=== PATIENT | female | born 1985 | race Caucasian/White ===

== ENCOUNTER → 2017-01-24 | Outpatient (CLI) | payer BC, OTHER ==
[~2017-01-24] MED LIST: PRENTAB26 PO; VITACAP26
[2017-01-24 18:28] LABS: URINE APPEARANCE CLEAR (CLEAR); URINE BILIRUBIN NEG (NEG); URINE COLOR YELLOW; URINE EPITHELIAL CELL AUTO >30 /lpf (0-5); URINE NITRITE NEG (NEG); URINE PH 5.5 (4.5-7.5); URINE SPECIFIC GRAVITY 1.011 (1.000-1.030); UROBILINOGEN NEG (NEG)
[2017-01-24 18:30] LABS: MANUAL MICROSCOPIC REQUIRED? NO; REVIEW REQ? NO
== END | disposition home or self-care (01) ==
LOC: C.LABSPEC 17:36
PROVIDERS: ATTEND Obstetrics & Gynecology
DX: Z34.81 Encounter for supervision of other normal pregnancy, first trimester (principal)

== ENCOUNTER → 2017-01-30 | Outpatient (CLI) | payer OTHER ==
[2017-01-30 10:13] LABS: BASO % 0.1 %; BASO ABS # 0.01 K/uL (0-0.2); COMPLETE YES; HEMATOCRIT 39.1 % (37-47); IG% 0.1 %; LYMPH % 21.7 %; LYMPH ABS # 1.46 K/uL (1.2-3.4); MEAN CELL VOLUME 93.5 fL (80-100); MEAN CORPUSCULAR HGB CONC 35.3 g/dl (32-36); MEAN PLATELET VOLUME 9.9 fL (7.4-10.4); NEUT % 70.1 %; PLATELET COUNT 229 K/uL (130-400); RED BLOOD COUNT 4.18 M/uL (4.2-5.4); WHITE BLOOD COUNT 6.74 K/uL (4.8-10.8)
[2017-02-01 01:58] LABS: CHLAMYDIA TRACH RNA*** NOT DETECTED (NOT DETECTED); GC (NEIS GONORRHOEAE)RNA** NOT DETECTED (NOT DETECTED)
== END | disposition home or self-care (01) ==
LOC: C.LAB1850 09:10
PROVIDERS: ATTEND Obstetrics & Gynecology
DX: Z34.81 Encounter for supervision of other normal pregnancy, first trimester (principal)

== ENCOUNTER → 2017-01-30 | Outpatient (CLI) | payer OTHER | END | disposition home or self-care (01) | LOC: C.PAPS 11:29 | PROVIDERS: ATTEND Obstetrics & Gynecology | DX: Z12.4 Encounter for screening for malignant neoplasm of cervix (principal) ==

== ENCOUNTER → 2017-04-03 | Outpatient (CLI) | payer OTHER ==
[2017-04-03 15:19] LABS: GTGD 50 Grams
== END | disposition home or self-care (01) ==
LOC: C.LAB1850 12:05
PROVIDERS: ATTEND Obstetrics & Gynecology
DX: Z34.82 Encounter for supervision of other normal pregnancy, second trimester (principal)

== ENCOUNTER → 2017-06-04 | Outpatient (CLI) | payer OTHER ==
[~2017-06-04] MED LIST changes: -VITACAP26
[2017-06-04 14:40] LABS: HEMATOCRIT 34.2 % (37-47)
[2017-06-04 15:03] LABS: GTGD 50 Grams
== END | disposition home or self-care (01) ==
LOC: C.LAB1850 12:05
PROVIDERS: ATTEND Obstetrics & Gynecology
DX: Z34.83 Encounter for supervision of other normal pregnancy, third trimester (principal)

== ENCOUNTER → 2017-08-04 | Outpatient (CLI) | payer OTHER ==
[~2017-08-04] MED LIST changes: +VITACAP26
== END | disposition home or self-care (01) ==
LOC: C.LABSPEC 17:53
PROVIDERS: ATTEND Obstetrics & Gynecology
DX: Z34.83 Encounter for supervision of other normal pregnancy, third trimester (principal)

== ENCOUNTER → 2017-08-16 | Outpatient (CLI) | payer OTHER ==
[~2017-08-16] VITALS: Ht 170.2 cm; Wt 71.8 kg
[2017-08-16 19:43] VITALS: Ht 170.2 cm; Wt 71.8 kg
== END | disposition home or self-care (01) ==
LOC: UNDOADMOB 18:37 → C.LD 18:37 → C.OPB 18:37 → OBSVTOIN 19:13 → INTOOBSV 19:13 → UNDODISIN 19:25 → EDSTATUS 08-19 09:37
PROVIDERS: ATTEND Obstetrics & Gynecology
DX: O26.893 Other specified pregnancy related conditions, third trimester (principal); Z3A.39 39 weeks gestation of pregnancy

== ENCOUNTER 2017-08-29 17:35 | Inpatient (IN) | payer OTHER ==
[~2017-08-29] VITALS: Ht 170.2 cm; Wt 71.7 kg
[2017-08-29] MEDS ORDERED: LACTATED RINGER'S 1000ML 1,000 ML IV PRN (18:31)
[2017-08-29 18:53] LABS: HEMATOCRIT 33.7 % (37-47); MEAN CELL VOLUME 94.9 fL (80-100); MEAN CORPUSCULAR HEMOGLOBIN 32.7 pg (25-34); MEAN CORPUSCULAR HGB CONC 34.4 g/dl (32-36); MEAN PLATELET VOLUME 9.5 fL (7.4-10.4); PLATELET COUNT 165 K/uL (130-400); RED BLOOD COUNT 3.55 M/uL (4.2-5.4); WHITE BLOOD COUNT 8.86 K/uL (4.8-10.8)
[2017-08-29 19:56] VITALS: Ht 170.2 cm; Wt 71.7 kg
[2017-08-29] MEDS: LACTATED RINGER'S 1000ML 1,000 ML IV SCH ×2 (21:06→21:49)
[2017-08-29] MEDS ORDERED: FENTANYL 2MCG/ML ROPIV 1.25MG/ML 100ML BAG EPI ONE (21:08)
[2017-08-29] MEDS ORDERED: FENTANYL CITRATE INJ 50 MCG/1 ML 2 ML VIAL ONE (21:08)
[2017-08-29] MEDS ORDERED: EpHEDrine SULFATE INJ 50 MG/ML AMP ONE (21:08)
[2017-08-29] MEDS ORDERED: BUPIVACAINE 0.25% 30 ML VIAL ONE (21:08)
[2017-08-29] MEDS ORDERED: NALOXONE HCL INJ 1 MG in SODIUM CHLORIDE 0.9% 1000ML 1,000 ML IV PRN (21:46)
[2017-08-29] MEDS ORDERED: LACTATED RINGER'S 1000ML 500 ML IV PRN (21:46)
[2017-08-29] MEDS ORDERED: DiphenhydrAMINE HCL 50 MG/ML VIAL IV PRN (22:00)
[2017-08-29] MEDS ORDERED: FENTANYL 2MCG/ML ROPIV 1.25MG/ML 100ML BAG EPI PRN (22:00)
[2017-08-29] MEDS ORDERED: NALBUPHINE HCL INJ 10 MG/ML AMP IV PRN (22:00)
[2017-08-29] MEDS ORDERED: NALOXONE HCL INJ 0.4 MG/1 ML VIAL/CARP IV PRN (22:00)
[2017-08-29] MEDS ORDERED: ONDANSETRON INJ 2 MG/ML 2 ML VIAL IV PRN (22:00)
[2017-08-29] MEDS ORDERED: EpHEDrine SULFATE INJ 50 MG/ML AMP IV PRN (22:00)
[2017-08-30] MEDS ORDERED: OXYTOCIN 30 UNITS/500ML NSS IV ONE (00:47)
--- NOTE | 2017-08-30 01:18 | Anesthesia Procedure Note ---
Anesthesia Epidural Removal Nt Date & Time Aug 30, 2017 at 01:18 Vital Signs Pain Intensity: 1 Notes Mental Status: alert / awake / arousable, participated in evaluation Nausea / Vomiting: adequately controlled Pain: adequately controlled Airway Patency, RR, SpO2: stable & adequate BP & HR: stable & adequate Hydration State: stable & adequate Neuraxial Anesthesia: was administered Anesthetic Complications: no major complications apparent, pt satisfied with anesthetic care Epidural: removed without complications, with tip intact
[2017-08-30] MEDS ORDERED: IBUPROFEN 600 MG TAB ONE (01:27)
[2017-08-30] MEDS ORDERED: ACETAMINOPHEN/CODEINE 300/30MG TAB PO PRN ×2 (01:30)
[2017-08-30] MEDS ORDERED: BENZOCAINE 20% AER SPR 82.5 GM CAN EXT PRN (01:30)
[2017-08-30] MEDS ORDERED: OXYTOCIN 30 UNITS/500ML NSS IV PRN (01:30)
[2017-08-30] MEDS ORDERED: LANOLIN OINT EXT PRN ×2 (01:30)
[2017-08-30] MEDS ORDERED: SUPERCREAM 0.870 % 15GM JAR EXT PRN (01:30)
--- NOTE | 2017-08-30 01:56 | DELIVERY SUMMARY ---
DATE OF OPERATION: 08/30/2017 The patient is a 32-year-old 4, para 2-0-1-2 white female, EDC of 08/24/2017, who presented in active labor. She received effective epidural analgesia and membranes were ruptured for clear fluid. She progressed to full dilation and pushed effective through one contraction for delivery of a viable male infant. Mouth and nasopharynx were suctioned. It was crying and the was moving all four limbs. The infant was placed on the mother's abdomen for further drying and attention and stimulation. The cord was noted to be somewhat short and it was clamped and cut prior to the 30-second time period. The placenta was expressed intact with a 3-vessel cord. There are only superficial labial abrasions present bilaterally. Estimated blood loss was 200 mL. Bleeding, was controlled with dilute Pitocin. I attest to the content of the Intraoperative Record and any orders documented therein. Any exception s are noted below.
[2017-08-30 05:00] VITALS: BP 105/66; PULSE 73; TEMP 36.7; O2SAT 98
--- NOTE | 2017-08-30 07:05 | Progress Note ---
Subjective Aug 30, 2017. Subjective conversation w/ patient, physical exam Ambulation: ambulating normally Voiding: no voiding problems Passing Gas: Yes Diet Tolerance: Regular Diet Lochia: Moderate Feeding Type: Breast Feeding Review of Systems Constitutional: No fever, No chills, No sweats, No weight loss, No weakness, No fatigue, No problem reported Breast: + see HPI, + breast lump, + change in shape, + nipple discharge, + breast pain, + problem reported Abdomen: + pain, + nausea, + vomiting, + diarrhea, + constipation, + GI bleeding, + problem reported Female : + see HPI, + dysuria, + urinary frequency, + hematuria, + incontinence, + abnormal vaginal bleeding, + vaginal discharge, + problem reported Objective Vital Signs Date Time Temp Pulse Resp B/P (MAP) Pulse Ox O2 Delivery O2 Flow Rate FiO2 08/30/17 05:00 98 Room Air 08/30/17 05:00 36.7 73 18 105/66 (79) 98 Room Air Physical Exam General Appearance: WELL-APPEARING Abdomen: non tender, soft Fundus: Firm, Non-Tender, Relation to Umbilicus (at U) Extremities: no calf tenderness Laboratory Results Last 24 Hours Test 08/29/17 18:40 White Blood Count 8.86 K/uL Red Blood Count 3.55 M/uL Hemoglobin 11.6 g/dL Hematocrit 33.7 % Mean Corpuscular Volume 94.9 fL Mean Corpuscular Hemoglobin 32.7 pg Mean Corpuscular Hemoglobin Concent 34.4 g/dl RDW Standard Deviation 47.0 fL RDW Coefficient of Variation 13.4 % Platelet Count 165 K/uL Mean Platelet Volume 9.5 fL Assessment and Plan Day#: 1 Continue Routine Care: stable course continue current care plan
[2017-08-30 07:23] VITALS: BP 111/71; PULSE 65; TEMP 36.7; O2SAT 99
[2017-08-30] MEDS: PRENATAL VITAMIN TAB PO SCH (08:38)
[2017-08-30] MEDS: IBUPROFEN 600 MG TAB PO PRN ×4 (08:41→20:31)
[2017-08-30] MEDS: ACETAMINOPHEN 325 MG TAB PO PRN ×2 (10:57→16:33)
[2017-08-30 12:58] VITALS: BP 114/74; PULSE 64; TEMP 36.6
[2017-08-30 16:12] VITALS: BP 114/71; PULSE 68; TEMP 36.4
[2017-08-30 20:00] VITALS: BP 120/77; PULSE 78; TEMP 36.7; O2SAT 98; O2SAT 99
[2017-08-30 23:55] VITALS: BP 113/73; TEMP 36.7
[2017-08-31 03:20] VITALS: BP 116/73; PULSE 68; TEMP 36.8
[2017-08-31 05:59] LABS: HEMATOCRIT 31.2 % (37-47)
[2017-08-31 08:05] VITALS: BP 109/73; PULSE 61; TEMP 36.6; O2SAT 98
[2017-08-31] MEDS: IBUPROFEN 600 MG TAB PO PRN (09:13)
[2017-08-31] MEDS: PRENATAL VITAMIN TAB PO SCH (09:15)
--- NOTE | 2017-08-31 09:37 | Progress Note ---
Subjective Aug 31, 2017. Subjective conversation w/ patient, physical exam Ambulation: ambulating normally Voiding: no voiding problems Passing Gas: Yes Diet Tolerance: Regular Diet Lochia: Moderate Feeding Type: Breast Feeding Review of Systems Constitutional: No problem reported Respiratory: No problem reported Cardiac: No problem reported Breast: No problem reported Abdomen: No problem reported Female : No problem reported Objective Vital Signs Date Time Temp Pulse Resp B/P (MAP) Pulse Ox O2 Delivery O2 Flow Rate FiO2 08/31/17 03:20 36.8 68 18 116/73 (87) Room Air 08/30/17 23:55 Room Air 08/30/17 23:55 36.7 18 113/73 (86) Room Air 08/30/17 20:00 99 Room Air 08/30/17 20:00 36.7 78 16 120/77 (91) 98 Room Air 08/30/17 16:12 Room Air 08/30/17 16:12 36.4 68 16 114/71 (85) Room Air 08/30/17 12:58 36.6 64 14 114/74 (87) Room Air Physical Exam General Appearance: WELL-APPEARING, NO APPARENT DISTRESS Respiratory/Chest: no respiratory distress Cardiovascular: regular rate, rhythm Abdomen: non tender, soft Fundus: Firm Extremities: normal inspection Laboratory Results Last 24 Hours Test 08/31/17 05:29 Hemoglobin 10.5 g/dL Hematocrit 31.2 % Assessment and Plan Day#: 1 Continue Routine Care: PPD#1, doing well, requesting discharge home. Discharge instructions discussed, followup in office 6w.
--- NOTE | 2017-08-31 09:38 | Discharge Instructions ---
Discharge Instructions Date of Service Aug 31, 2017. Admission Reason for Admission: R/O Labor Discharge Discharge Diagnosis / Problem: vaginal delivery Discharge Goals Goal(s): Routine recovery after delivery Activity Recommendations Activity Limitations: per Instructions/Follow-up section . Instructions / Follow-Up Instructions / Follow-Up ACTIVITY RECOMMENDATIONS: * Gradual return to full activity over the next 2-3 weeks. * No lifting - nothing heavier than baby over the next 2-3 weeks. * Do not engage in vigorous exercise, sexual activity or sports until cleared by your physician. * Do not drive or operate any motorized equipment until cleared by your physician. * You may shower/bathe daily. MEDICATIONS: For discomfort or pain, you may use Acetaminophen (Tylenol), Ibuprofen (Advil), or Naproxen (Aleve) following the package directions. For constipation you may use Colace following the package directions. BREAST CARE: If you are not breast feeding: * Wear a supportive bra 24 hours a day for one to two weeks. * Avoid stimulating your breasts and nipples as much as possible during the first few weeks after delivery. * When taking a shower, have the warm water hit your back, not breasts. * When your breasts feel full, apply ice packs. Usually three to four times a day helps ease the discomfort. * Take a mild pain medication (Tylenol / Motrin) when you are uncomfortable. If breast feeding: * Use breast milk to lubricate nipples. Lansinoh cream may be used for sore nipples. You do not need to remove cream prior to breast feeding. If using a different brand of cream, check the label for directions regarding removal of cream prior to nursing. * Wear a supportive bra. * If having problems with breasts or breast feeding, call a transportation sales consultant or your health care provider. EPISIOTOMY CARE: After delivery, if you have an episiotomy (stitches), the following steps will ease discomfort and aid healing. * For the first 24 hours after delivery, place ice packs next to your episiotomy to help reduce swelling. * After the first 24 hour-period, sitz baths, either portable or in the tub, are suggested. A shower with a shower arm sprayed over the episiotomy may be comforting. * Sara care should be done after each voiding and bowel movement. Squirt warm water from a plastic bottle over the perineum (region of the body between the anus and urinary opening) and pat dry. * Use Dermoplast to ease discomfort. Shake container. [place] directly over the episiotomy. Place a Tucks on a clean sanitary pad next to your episiotomy. SPECIAL CARE INSTRUCTIONS: When you are discharged from the hospital, it is important for you to follow the instructions listed below: * During the first week at home, you should be able to care for yourself and your baby. In addition, the usual light household activities are encouraged. * Limit your activities to the way you feel. Do not try to clean the house or move furniture. Be sensible. * If you actively engage in sports and have done so up until the time of your delivery, you may resume these activities as soon as you feel able. This may take up to one month or even longer. Use good judgment. * Continue to take your vitamins for at least six weeks after the of your baby. * Your diet need not be limited unless you were on a special diet before your delivery. Breast-feeding mothers need around 2500 calories per day and at least 64-80 ounces of fluid per day (8 to 10 glasses). * You should eat foods from the four major food groups. Crash diets or fad diets are to be avoided. Eating lean meats, fresh fruits and vegetables, low-fat dairy products, high fiber foods and a regular exercise program, will help you get back to your pre- weight without putting your health at risk. * Constipation is sometimes a problem after delivery. Take a mild laxative as needed. If breast feeding, Milk of Magnesia is acceptable to use. You may use a suppository or Fleets enema if no episiotomy. * A daily shower or tub bath is suggested. Be sure to thoroughly and gently dry the perineum. * A bloody vaginal discharge will usually continue until around four weeks post . A small amount of bleeding may continue for as long as six weeks. Vaginal discharge changes from the bright red bleeding after delivery to pink then brownish and finally yellowish-pink before becoming white and disappearing. * Bleeding may increase with activity. Your first period may come in 4-8 weeks. If you are breast feeding, your period may be delayed even longer. * [place] (sex) can begin whenever both you and your partner feel comfortable and do not have any form of genital infection. It is recommended that you wait at least six weeks for internal and external healing to occur. If you have questions, please talk to your health care practitioner. A condom should be used to prevent infection and . * Foreplay, gentle intercourse and lubrication is very important the first several times to prevent pain. A water-based lubricant such as K-Y jelly or Astroglide may be used. * If you have RH negative blood and your baby is RH positive, you will receive RHOGAM by injection prior to discharge. The nurse will give you a card to keep with you that has the date and place that you received RHOGAM after delivery. * During your care, you had a Rubella screen done to check for the presence of rubella antibodies in your blood. If your test was negative, you will receive a Rubella vaccine prior to discharge. This vaccine may cause a fever, soreness at the injection site and flu-like symptoms. If these symptoms persist, notify your health care practitioner. is not advised for one month after a Rubella vaccine. * Verbalizes understanding of car seat law as reviewed with patient nursing. * Car Seat hand-out given and reviewed with patient by nursing. * Shaken baby information reviewed with patient by nursing. Call you doctor if: * Heavy bleeding (saturating several pads an hour) or passing clots the size of your fist. * A fever >101 degrees F (38.3 degrees C) on two occasions four hours apart and /or chills. * Unusual pain in the pelvic or vaginal areas. * "Baby Blues" lasting longer than two weeks. If you have any questions or concerns, call your health care practitioner at . FOLLOW UP VISIT: * Please call the office at to schedule a 6 week examination. It is important you keep this appointment. It is important for you to make arrangements for either yearly or twice yearly check-ups thereafter. Current Hospital Diet Patient's current hospital diet: Regular OB Diet Discharge Diet Recommended Diet: Regular OB Diet Pending Studies Studies pending at discharge: no Medical Emergencies . Who to Call and When: Medical Emergencies: If at any time you feel your situation is an emergency, please call 911 immediately. . Non-Emergent Contact Non-Emergency issues call your: Primary Care Provider, Operator Cavity Pump . . "Provider Documentation" section prepared by Cate Giordano. . VTE Core Measure Inpt VTE Proph given/why not?: Treatment not indicated
[2017-08-31 14:40] VITALS: BP_DIAS 73; PULSE 61; TEMP 36.6
[2017-08-31] MEDS ORDERED: BISACODYL 5 MG TABEC PO SCH (20:00)
== END 2017-08-31 14:40 | disposition home or self-care (01) | DRG 775 ==
LOC: C.OPB 17:35 → C.LD 17:35 → C.OPB 18:33 → C.OBG 08-30 04:50
PROVIDERS: ADMIT Obstetrics & Gynecology; ATTEND Obstetrics & Gynecology
PROC: 10E0XZZ Delivery of Products of Conception, External Approach (ICD-10-PCS; principal; 2017-08-30)
DX: O80 Encounter for full-term uncomplicated delivery (principal); Z3A.40 40 weeks gestation of pregnancy; Z37.0 Single live birth